=== PATIENT | female | born 1945 | race Hispanic/Latino ===

== ENCOUNTER 2023-11-08 18:15 | Emergency (ER) | payer MEDICARE, OTHER ==
[~2023-11-08 18:15] MED LIST: Iopamidol 370 76% 100 ML VIAL ONE
[2023-11-08] MEDS ORDERED: Morphine 2 MG/ML VIAL ONE (18:57)
[2023-11-08 19:00] LABS: #Eosinphils 0.2 thou/uL (0.0-0.7); #Lymphocytes 2.2 thou/uL (1.20-3.40); #Monocytes 0.5 thou/uL (0.11-0.59); #Neutrophils 3.9 thou/uL (1.40-6.50); %Basophils 0.7 % (0.0-1.0); %Eosinophils 2.8 % (0.0-10.0); %Lymphocytes 32.5 % (21.0-51.0); %Neutrophils 57.1 % (42.0-75.0); Hematocrit 41.4 % (36.0-47.0); Hemoglobin 13.3 g/dL (12.0-16.0); Mean Corpuscular HGB CONC 32.2 g/dL (32.0-36.0); Mean Corpuscular Hemoglobin 30.5 pg (27.0-31.0); Mean Corpuscular Volume 94.8 fl (78.0-98.0); Mean Platelet Volume 9.2 fL (7.4-10.4); Platelet Count 171 10x3/uL (130-400); RBC Distribution Width 12.4 % (11.5-14.5); Red Blood Cell (RBC) Count 4.37 mill/uL (4.20-5.40); White Blood Cell (WBC) Count 6.8 10x3/uL (4.8-10.8)
[2023-11-08 19:12] LABS: INR-International Normal Ratio 1.1; Prothrombin Time 14.5 sec (12.0-14.7)
[2023-11-08 19:17] LABS: ALT (SGPT) 14 U/L (8-55); AST (SGOT) 21 U/L (5-34); Albumin 3.6 g/dL (3.4-4.8); Alkaline Phosphatase 95 U/L (40-110); Anion Gap 12 mmol/L (10-20); BUN (Urea Nitrogen) 20 mg/dL (9.8-20.1); Bilirubin, Total 0.4 mg/dL (0.2-1.2); Calc. Creatinine Clearance 0 mL/min (70-130); Calcium 8.8 mg/dL (7.8-10.44); Carbon Dioxide 23 mmol/L (23-31); Chloride 108 mmol/L (98-107); Estimated GFR 90; Globulin 3.3 g/dL (2.4-3.5); Glucose 86 mg/dL (83-110); Potassium 3.4 mmol/L (3.5-5.1); Protein, Total 6.9 g/dL (5.8-8.1); Sodium 140 mmol/L (136-145)
[2023-11-08 22:01] LABS: Bilirubin Negative (Negative); Blood, Urine Trace (Negative); Clarity Clear (Clear); Glucose, Urine (Dipstick) Negative (Negative); Ketone, Urine Negative (Negative); Leukocyte Negative (Negative); Nitrite Negative (Negative); Protein, Urine (Dipstick) Negative (Neg-Trace); Urobilinogen 0.2 mg/dL (Less than 2); pH, Urine 6.5 (5.0-9.0)
[2023-11-08 22:06] LABS: Bacteria/HPF None Seen HPF (None Seen); CAUTI Indications for Culture Dysuria,urgency,freq; RBC/HPF 0-3 HPF (0-3); Squamous Epithelial 0-3 HPF (0-3); WBC/HPF None Seen HPF (0-3)
[2023-11-08 22:07] LABS: Urine Culture Reflex No No
== END 2023-11-08 23:04 | disposition short-term general hospital (02) ==
LOC: BURERS 18:15
DX: S22.31XA Fracture of one rib, right side, initial encounter for closed fracture (principal); R00.1 Bradycardia, unspecified; W08.XXXA Fall from other furniture, initial encounter
CPT/HCPCS: 70450; 71260; 74177; 80053; 81001; 85025; 85610; 93005; 96374; J2272; Q9967